=== PATIENT | female | born 1945 | race Hispanic/Latino ===

== ENCOUNTER 2018-02-01 14:30 | Emergency (ER) | payer MEDICARE, BC ==
[2018-02-01 14:32] VITALS: BMI 251865.1
[2018-02-01] MEDS ORDERED: Sodium Chloride 0.9% 1,000 ML IV SCH (14:45)
--- NOTE | 2018-02-01 14:49 | ED PDOC ---
Arrival/HPI - General Time Seen by Provider: 02/01/18 14:33 Historian: Patient - History of Present Illness Narrative History of Present Illness (Text): 02/01/18 14:46 72 year old female, whose past medical history includes hypertension, diabetes, hyperlipidemia, and end stage renal disease on dialysis, who present to the emergency department complaining of left arm numbness/weakness since 12:30. Patient denies any fever, chills, chest pain, shortness of breath, nausea, vomiting, diarrhea, back pain, neck pain, headache, dizziness, or any other complaints. Time/Duration: 1-3 hours Symptom Onset: Sudden Symptom Course: Unchanged Activities at Onset: Light Context: Home Past Medical History - Provider Review Nursing Documentation Reviewed: Yes - Infectious Disease Hx of Infectious Diseases: None - Cardiac Hx Pacemaker: No - Neurological Hx Paralysis: No - HEENT Hx HEENT Disorder: Yes (eyeglasses) Hx Glaucoma: Yes - Renal Hx Renal Failure: Yes - Endocrine/Metabolic Hx Diabetes Mellitus Type 2: Yes - Hematological/Oncological Hx Blood Transfusions: No Hx Blood Transfusion Reaction: No - Integumentary Hx Dermatological Disorder: No - Musculoskeletal/Rheumatological Hx Musculoskeletal Disorders: Yes - Gastrointestinal Hx Gastroesophageal Reflux: Yes Hx Gastrointestinal Ulcer: Yes - Genitourinary/Gynecological Hx Genitourinary Disorders: Yes (voids "very little") - Psychiatric Hx Emotional Abuse: No Hx Physical Abuse: No Hx Substance Use: No - Surgical History Hx Cardiac Catheterization: Yes Hx Coronary Stent: Yes (14 yrs ago) Other/Comment: CARDIAC STENT, 14 yra ago, r cw permacath for hd removed 04/14/2016 , left arm av shunt 09/29/2018, baloon sx february 25, 2016 ro removed blockage of left arm shunt, pt had had an us of left arm february 2016 due to a problem with shunt, stent left arm march 2016 - Anesthesia Hx Anesthesia Reactions: No Hx Malignant Hyperthermia: No - Suicidal Assessment Feels Threatened In Home Enviroment: No Family/Social History - Physician Review Nursing Documentation Reviewed: Yes Family/Social History: Unknown Family HX Smoking Status: Former Smoker Hx Alcohol Use: (quit 20 yrs ago) Hx Substance Use: No Hx Substance Use Treatment: No Allergies/Home Meds Allergies/Adverse Reactions: Allergies No Known Allergies Allergy (Verified 06/06/16 07:16) Home Medications: Home Meds Medication Instructions Recorded Confirmed Latanoprost 0.005% Opht [Xalatan 1 drp OU HS 04/09/15 10/11/16 Opht] Folic Acid 1 mg PO DAILY 07/05/15 10/11/16 amLODIPine [Norvasc] 10 mg PO DAILY 07/05/15 10/11/16 Aspirin [Adult Low Dose Aspirin EC] 81 mg PO QAM 09/27/15 10/11/16 Calcium Acetate [Phoslo] 667 mg PO WM 09/27/15 10/11/16 Ferrous Sulfate [Iron Supplement] 325 mg PO DAILY 09/27/15 10/11/16 Lansoprazole [Prevacid 24Hr] 15 mg PO QAM 09/27/15 10/11/16 Metoprolol Tartrate [Lopressor] 50 mg PO BID 09/27/15 10/11/16 [place]-3S/Dha/Epa/Fish Oil [Fish 1,200 mg PO DAILY 09/27/15 10/11/16 Oil 1,200 mg Softgel] Multivitamin [One Daily] 1 tab PO DAILY 06/06/16 10/11/16 Enalapril Maleate [Vasotec] 10 mg PO DAILY 10/03/16 10/11/16 Multivitamin with Iron [Tab-A-Ferny 1 tab PO DAILY 10/03/16 10/11/16 with Iron] Tramadol HCl/Acetaminophen 1 tab PO PRN PRN 10/03/16 10/11/16 [Acetaminophen-Tramadol HCl 325 mg-37.5 mg] Review of Systems - Physician Review All systems were reviewed & negative as marked: Yes - Review of Systems Constitutional: Normal Eyes: Normal ENT: Normal Respiratory: Normal. absent: SOB, Cough Cardiovascular: Normal. absent: Chest Pain Gastrointestinal: Normal. absent: Abdominal Pain Genitourinary Female: Normal. absent: Dysuria, Frequency Musculoskeletal: Other (numbness/weakness to left arm). absent: Back Pain Skin: Normal. absent: Other Neurological: Normal. absent: Headache, Dizziness Endocrine: Normal Hemo/Lymphatic: Normal Psychiatric: Normal Physical Exam Vital Signs Reviewed: Yes Vital Signs Temp Pulse Resp BP Pulse Ox 02/01/18 17:26 81 18 127/65 97 02/01/18 14:32 98.4 F 79 18 125/64 98 Temperature: Afebrile Blood Pressure: Normal Pulse: Regular Respiratory Rate: Normal Appearance: Positive for: Well-Appearing, Non-Toxic, Comfortable Pain Distress: None Mental Status: Positive for: Alert and Oriented X 3 Finger Stick Blood Glucose: 145 - Systems Exam Head: Present: Atraumatic, Normocephalic Pupils: Present: PERRL Extroacular Muscles: Present: EOMI Conjunctiva: Present: Normal Mouth: Present: Moist Mucous Membranes Neck: Present: Normal Range of Motion Respiratory/Chest: Present: Clear to Auscultation, Good Air Exchange. No: Respiratory Distress, Accessory Muscle Use Cardiovascular: Present: Regular Rate and Rhythm, Normal S1, S2. No: Murmurs Abdomen: No: Tenderness, Distention, Peritoneal Signs Back: Present: Normal Inspection Upper Extremity: Present: Normal Inspection. No: Cyanosis, Edema Lower Extremity: Present: Normal Inspection. No: Edema Skin: Present: Warm, Dry, Normal Color. No: Rashes Psychiatric: Present: Alert, Oriented x 3, Normal Insight, Anxious Medical Decision Making ED Course and Treatment: 02/01/18 14:50 Impression: 72 year old female presents to the emergency department complaining of sudden onset of numbness/weakness in the left arm since 12:30. ro stroke vs other metabolic etiology. Plan: -- Labs -- CT Head -- EKG -- Troponin -- CXR -- Sodium Chloride -- UA -- Reassess and disposition Progress Notes: EKG reviewed, shows NSR at 86 bpm. Non-specific ST/T wave changes. 02/01/18 15:[address] barajas, not tpa candidate low nih resolving symptoms. does not need cta given nih 2 . symptoms imprioving in er. pt took asa and plavix today. 02/01/18 16:09 Leaving Against Medical Advice (AMA): The patient is choosing to leave against medical advice. I have personally explained to the patient that choosing to do so may result in permanent bodily harm or . I have discussed at great length that without further evaluation and monitoring there may be unforeseen circumstances and/or deterioration causing permanent bodily harm or as a result of their choice. The patient is alert, oriented, and shows the mental capacity to make clear decisions regarding the patients health care at this time. The patient continues to wish to leave against medical advice. In light of the patients decision to leave against medical advice, follow-up has been arranged and the patient is aware of the importance to following up as instructed. The patient has been advised that they should return to the emergency room immediately if they change their mind at any time, or if their condition begins to change or worsen in any way. 02/01/18 18:17 symptoms resolved in er. advised risk of stroke. pt refuses admission/transfer. - Lab Interpretations Lab Results: 02/01/18 14:45 02/01/18 14:45 Lab Results 02/01/18 15:00: Blood Type A POSITIVE, Antibody Screen Negative, BBK History Checked Patient has bt 02/01/18 14:45: Sodium 138, Potassium 4.6, Chloride 95 L, Carbon Dioxide 22, Anion Gap 26 H, BUN 49 H, Creatinine 8.3 H*, Est GFR ( Amer) 6, Est GFR ( Non-Af Amer) 5, Random Glucose 143 H, Calcium 9.0, Total Bilirubin 0.4, AST 22, ALT 14, Alkaline Phosphatase 36 L, Troponin I < 0.01 D, Total Protein 8.0, Albumin 4.8, Globulin 3.2, Albumin/Globulin Ratio 1.5, Triglycerides 310 H, Cholesterol 156, LDL Cholesterol Direct 56, HDL Cholesterol 39 02/01/18 14:45: PT 12.4, INR 1.09 H, APTT 26.1 02/01/18 14:45: WBC 9.8, RBC 3.26 L, Hgb 9.9 L, Hct 30.2 L, MCV 92.6, MCH 30.4, MCHC 32.8, RDW 13.5, Plt Count 208, MPV 11.2 H, Gran % 59.3, Lymph % (Auto) 31.4 , [place] % (Auto) 6.0, Eos % (Auto) 2.9, Baso % (Auto) 0.4, Gran # 5.79, Lymph # ( Auto) 3.1, [place] # (Auto) 0.6, Eos # (Auto) 0.3, Baso # (Auto) 0.04 - RAD Interpretation Radiology Orders: 02/01/18 14:43 HEAD W/O (CODE STROKE) [CT] Stat CHEST PORTABLE [RAD] Stat - Medication Orders Current Medication Orders: Discontinued Medications Clopidogrel Bisulfate (Plavix) 300 mg PO STAT STA Stop: 02/01/18 15:22 Last Admin: 02/01/18 17:25 Dose: Not Given Non-Admin Reason: Patient Refused Sodium Chloride (Sodium Chloride 0.9%) 1,000 mls @ 100 mls/hr IV .Q10H GINA Last Admin: 02/01/18 16:00 Dose: Not Given Non-Admin Reason: Patient Refused eMAR Start Stop Document 02/01/18 16:00 EQ (Rec: 02/01/18 17:25 EQ [id number]) Intravenous Solution Start Date 02/01/18 Start Time 16:00 NIHSS Scale ([place]) Time Performed: 18:17 - How Severe is the Stoke Baseline Level of Consciousness: 0=Alert LOC to Questions: 0=Both comments correct LOC to commands: 0=Obeys both correctly Best Gaze: 0=Normal Visual: 0=No visual loss Facial: 0=Normal Motor Arm - Left: 1=Drift noted before 10 sec Motor Arm - Right: 0=No drift Motor Leg - Left: 0=No drift Motor Leg - Right: 0=No drift Limb Ataxia: 0=Absent Sensory: 1=Mild to moderate loss Best Language: 0=No aphasia Dysarthia: 0=Normal articulation Extinction & Inattention (Neglect): 0=Normal, no object Score: 2 Risk Level: Minor Stroke Risk rTPA Inclusion/Exclusion - Refusal of Treatment Patient Refused Treatment: No - Inclusion Criteria for Altepase Patient is 18 years or Older: Yes The Clinical Diagnosis of Ischemic Stroke That is Causing a Potentially Disabling Neurological Deficit: No Time of Onset is Well Established to be Less Than 270 Minute Before Treatment Would Begin: Yes Risk/Benefit Discussed With Patient/Family Member Present: No - Scribe Statement The provider has reviewed the documentation as recorded by the Scribe Nadja Singh All medical record entries made by the Scribe were at my direction and personally dictated by me. I have reviewed the chart and agree that the record accurately reflects my personal performance of the history, physical exam, medical decision making, and the department course for this patient. I have also personally directed, reviewed, and agree with the discharge instructions and disposition. Disposition/Present on Arrival - Present on Arrival Any Indicators Present on Arrival: No History of DVT/PE: No History of Uncontrolled Diabetes: No Urinary Catheter: No History Surgical Site Infection Following: None - Disposition Have Diagnosis and Disposition been Completed?: Yes Diagnosis: Left against medical advice, Arm weakness Disposition: AGAINST MEDICAL ADVICE Disposition Time: 05:00 Condition: UNKNOWN Discharge Instructions (ExitCare): Transient Ischemic Attack, Stroke, Generalized Weakness, Leaving Against Medical Advice Additional Instructions: please follow up with your doctor/specialist. return to er with worsening symptoms or concerns. Referrals: Maribel Tinoco MD [Primary Care Provider] - Follow up with primary Soto Barajas MD [Staff Provider] - Follow up with primary Forms: [employer] ([place])
--- NOTE | 2018-02-01 15:02 | CT ---
PROCEDURE: CT HEAD WITHOUT CONTRAST. HISTORY: Code Stroke COMPARISON: None available. TECHNIQUE: Axial computed tomography images were obtained through the head/brain without intravenous contrast. Radiation dose: Total exam DLP = 855.15 mGy-cm. This CT exam was performed using one or more of the following dose reduction techniques: Automated exposure control, adjustment of the mA and/or kV according to patient size, and/or use of iterative reconstruction technique. FINDINGS: HEMORRHAGE: No acute parenchymal, subarachnoid or extra-axial hemorrhage. BRAIN: Mild chronic periventricular white matter ischemic changes seen extending peripherally into the deep and subcortical white matter both cerebral hemispheres. Note that the possibility of a small hyperacute infarct cannot be excluded on this exam. Mild generalized volume loss. Mild calcifications both carotid siphons. VENTRICLES: No obstructive hydrocephalus. CALVARIUM: Calvarium intact PARANASAL SINUSES: Unremarkable as visualized. No significant inflammatory changes. MASTOID AIR CELLS: Partial opacification several right-sided inferior mastoid air cells the OTHER FINDINGS: Orbits and contents unremarkable IMPRESSION: No acute intracranial hemorrhage. Mild chronic white matter ischemic changes. Note that the possibility of a small hyperacute infarct cannot be completely excluded. Mild generalized volume loss. Findings discussed with doctor Burciaga at approximately 2:57 p.m. with written down and read back verification. Partial opacification several right-sided inferior mastoid air cells
--- NOTE | 2018-02-01 15:04 | RAD ---
HISTORY: Code Stroke COMPARISON: Comparison chest 06/08/2016 FINDINGS: LUNGS: Poor inspiration with low lung volumes, crowded bronchovascular markings and bibasilar atelectasis. There also appears to be increased increased and coarsened markings which may in part be due to low lung volumes however possibility of mild interstitial infiltrates or possibly sequela of reactive/inflammatory airway disease not excluded Clinic correlation recommended. PLEURA: Left CP angle poorly delineated which may be also due to poor inspiration as well as large body habitus however the possibility of a small effusion or chronic pleural thickening not excluded. No pneumothorax apparent. CARDIOVASCULAR: Heart appears enlarged. OSSEOUS STRUCTURES: No significant abnormalities. VISUALIZED UPPER ABDOMEN: Normal. OTHER FINDINGS: None. IMPRESSION: Poor inspiration with low lung volumes, crowded bronchovascular markings and bibasilar atelectasis. There also appears to be increased increased and coarsened markings which may in part be due to low lung volumes however possibility of mild interstitial infiltrates or possibly sequela of reactive/inflammatory airway disease not excluded Clinic correlation recommended.
[2018-02-01 15:08] LABS: BASO # 0.04 K/mm3 (0.0-2.0); BASO % 0.4 % (0.0-3.0); EOS # 0.3 (0.0-0.7); EOS % 2.9 % (1.5-5.0); GRAN # 5.79 (1.4-6.5); GRAN % 59.3 % (50.0-68.0); HEMOGLOBIN 9.9 g/dL (12.0-16.0); LYMPH # 3.1 (1.2-3.4); LYMPH % 31.4 % (22.0-35.0); MEAN CELL VOLUME 92.6 fl (80.0-105.0); MEAN CORPUSCULAR HEMOGLOBIN 30.4 pg (25.0-35.0); MEAN CORPUSCULAR HGB CONC 32.8 g/dl (31.0-37.0); MEAN PLATELET VOLUME 11.2 fl (7.0-11.0); MONO # 0.6 (0.1-0.6); RBC 3.26 10^6/uL (3.5-6.1); RED CELL DISTRIBUTION WIDTH 13.5 % (11.5-14.5); WHITE BLOOD COUNT 9.8 10^3/ul (4.5-11.0)
[2018-02-01 15:19] LABS: INR 1.09 (0.93-1.08); PARTIAL THROMBOPLASTIN TIME 26.1 Seconds (25.1-36.5); PROTHROMBIN TIME 12.4 SECONDS (9.4-12.5)
[2018-02-01 15:59] LABS: ALBUMIN 4.8 g/dL (3.0-4.8); BLOOD UREA NITROGEN 49 mg/dL (7-21); GFR AFRICAN-AMERICAN 6; GFR NON-AFRICAN AMERICAN 5
[2018-02-01 16:00] LABS: ALB/GLOB RATIO 1.5 (1.1-1.8); ALT/SGPT 14 U/L (7-56); AST/SGOT 22 U/L (14-36); HDL CHOLESTEROL 39 mg/dL (29-60); LDL CHOLESTEROL 56 mg/dL (0-129); TROPONIN I < 0.01 ng/mL
[2018-02-01 17:25] VITALS: RESP 18; TEMP 98.4
[2018-02-01 17:32] VITALS: BP 127/65; PULSE 81; O2SAT 97
--- NOTE | 2018-02-01 17:57 | CP.PCM.CON ---
History of Present Illness - History of Present Illness History of Present Illness: Neurology Consultation Note: Mrs. Ardon is a 72-year-old woman with a past medical history of HTN, DM, HLD, ESRD on HD, who presented to the ED after she developed left side numbness with slight weakness that started at around 12:30 PM. She was evaluated in the ED and a code stroke was called. Her NIHSS was a 2. CT scan of the head did not show any acute findings. Her symptoms were too mild to warrant tPA, therefor she was not a good candidate for IV tPA. Past Patient History - Infectious Disease Hx of Infectious Diseases: None - Past Social History Smoking Status: Former Smoker - CARDIAC Hx Pacemaker: No - NEUROLOGICAL Hx Paralysis: No - HEENT Hx HEENT Problems: Yes (eyeglasses) Hx Glaucoma: Yes - RENAL Hx Renal Failure: Yes - ENDOCRINE/METABOLIC Hx Diabetes Mellitus Type 2: Yes - HEMATOLOGICAL/ONCOLOGICAL Hx Blood Transfusions: No Hx Blood Transfusion Reaction: No - INTEGUMENTARY Hx Dermatological Problems: No - MUSCULOSKELETAL/RHEUMATOLOGICAL Hx Musculoskeletal Disorders: Yes - GASTROINTESTINAL Hx Gastroesophageal Reflux: Yes - GENITOURINARY/GYNECOLOGICAL Hx Genitourinary Disorders: Yes (voids "very little") - PSYCHIATRIC Hx Emotional Abuse: No Hx Physical Abuse: No Hx Substance Use: No - SURGICAL HISTORY Hx Cardiac Catheterization: Yes Hx Coronary Stent: Yes (14 yrs ago) Other/Comment: CARDIAC STENT, 14 yra ago, r cw permacath for hd removed 04/14/2016 , left arm av shunt 09/29/2018, baloon sx february 25, 2016 ro removed blockage of left arm shunt, pt had had an us of left arm february 2016 due to a problem with shunt, stent left arm march 2016 - ANESTHESIA Hx Anesthesia Reactions: No Hx Malignant Hyperthermia: No Meds Allergies/Adverse Reactions: Allergies Allergy/AdvReac Type Severity Reaction Status Date / Time No Known Allergies Allergy Verified 06/06/16 07:16 Results - Vital Signs Recent Vital Signs: Last Vital Signs Temp 98.4 F 02/01/18 14:32 Pulse 81 02/01/18 17:26 Resp 18 02/01/18 17:26 BP 127/65 02/01/18 17:26 Pulse Ox 97 02/01/18 17:26 - Labs Result Diagrams: 02/01/18 14:45 02/01/18 14:45 Labs: Laboratory Results - last 24 hr 02/01/18 02/01/18 02/01/18 14:45 14:45 14:45 WBC 9.8 RBC 3.26 L Hgb 9.9 L Hct 30.2 L MCV 92.6 MCH 30.4 MCHC 32.8 RDW 13.5 Plt Count 208 MPV 11.2 H Gran % 59.3 Lymph % (Auto) 31.4 [place] % (Auto) 6.0 Eos % (Auto) 2.9 Baso % (Auto) 0.4 Gran # 5.79 Lymph # (Auto) 3.1 [place] # (Auto) 0.6 Eos # (Auto) 0.3 Baso # (Auto) 0.04 PT 12.4 INR 1.09 H APTT 26.1 Sodium 138 Potassium 4.6 Chloride 95 L Carbon Dioxide 22 Anion Gap 26 H BUN 49 H Creatinine 8.3 H* Est GFR ( Amer) 6 Est GFR (Non-Af Amer) 5 Random Glucose 143 H Calcium 9.0 Total Bilirubin 0.4 AST 22 ALT 14 Alkaline Phosphatase 36 L Troponin I < 0.01 D Total Protein 8.0 Albumin 4.8 Globulin 3.2 Albumin/Globulin Ratio 1.5 Triglycerides 310 H Cholesterol 156 LDL Cholesterol Direct 56 HDL Cholesterol 39 Blood Type Antibody Screen BBK History Checked 02/01/18 15:00 WBC RBC Hgb Hct MCV MCH MCHC RDW Plt Count MPV Gran % Lymph % (Auto) [place] % (Auto) Eos % (Auto) Baso % (Auto) Gran # Lymph # (Auto) Stanley # (Auto) Eos # (Auto) Baso # (Auto) PT INR APTT Sodium Potassium Chloride Carbon Dioxide Anion Gap BUN Creatinine Est GFR ( Amer) Est GFR (Non-Af Amer) Random Glucose Calcium Total Bilirubin AST ALT Alkaline Phosphatase Troponin I Total Protein Albumin Globulin Albumin/Globulin Ratio Triglycerides Cholesterol LDL Cholesterol Direct HDL Cholesterol Blood Type A POSITIVE Antibody Screen Negative BBK History Checked Patient has bt
--- NOTE | 2018-02-01 18:53 | CARD ---
APPROVED REPORT EKG Measurement Heart [id number] <Conclusion> Normal sinus rhythm Nonspecific ST and T wave abnormality Prolonged QT Abnormal ECG
== END 2018-02-01 17:26 | disposition left against medical advice (07) ==
LOC: ED 14:30
DX: M62.81 Muscle weakness (generalized) (principal); I12.0 Hypertensive chronic kidney disease with stage 5 chronic kidney disease or end stage renal disease; E11.22 Type 2 diabetes mellitus with diabetic chronic kidney disease; N18.6 End stage renal disease; Z99.2 Dependence on renal dialysis; E78.5 Hyperlipidemia, unspecified; Z87.891 Personal history of nicotine dependence

== ENCOUNTER → 2018-07-22 | Day surgery (SDC) | payer MEDICARE, BC ==
[2018-07-17 11:12] VITALS: BMI 28.1
[~2018-07-22] MED LIST: Iodixanol 320 MG/ML 200 ML BOTTLE IV ONE; Lidocaine 2% Inj (20ml) ONE; Midazolam 2 MG/2 ML VIAL ONE; Nitroglycerin 50mg in D5W 50 MG/250 ML BOTTLE IV ONE
[2018-07-22 11:55] LABS: BASO # 0.07 K/mm3 (0.0-2.0); BASO % 0.8 % (0.0-3.0); EOS # 0.4 (0.0-0.7); GRAN # 5.54 (1.4-6.5); GRAN % 63.3 % (50.0-68.0); HEMOGLOBIN 10.8 g/dL (12.0-16.0); LYMPH # 2.2 (1.2-3.4); LYMPH % 25.6 % (22.0-35.0); MEAN CELL VOLUME 99.4 fl (80.0-105.0); MEAN CORPUSCULAR HEMOGLOBIN 31.2 pg (25.0-35.0); MEAN CORPUSCULAR HGB CONC 31.4 g/dl (31.0-37.0); MEAN PLATELET VOLUME 11.4 fl (7.0-11.0); MONO # 0.6 (0.1-0.6); MONO % 6.3 % (1.0-6.0); RBC 3.46 10^6/uL (3.5-6.1); RED CELL DISTRIBUTION WIDTH 19.8 % (11.5-14.5); WHITE BLOOD COUNT 8.8 10^3/uL (4.5-11.0)
[2018-07-22 12:00] LABS: PARTIAL THROMBOPLASTIN TIME 24.8 Seconds (25.1-36.5); PROTHROMBIN TIME 11.5 SECONDS (9.4-12.5)
[2018-07-22 12:27] LABS: CALCIUM 8.8 mg/dL (8.4-10.5)
[2018-07-22 16:09] VITALS: RESP 16; TEMP 97.8
[2018-07-22 16:27] VITALS: BP 134/63; PULSE 67; O2SAT 100
--- NOTE | 2018-07-22 20:21 | VASCULAR ---
PROCEDURE: 1. Left upper extremity AV fistula angiogram 2. INFORMATION ASSURANCE SPECIALIST arterial anastomosis HISTORY: End-stage renal disease. Malfunctioning AV access PHYSICIAN(S): Vinh Snyder MD. TECHNIQUE: The relative risks and indications of the procedure were explained to the patient and consent obtained. Preliminary sonography of the anastomosis was performed. This revealed a web-like small anastomosis at the wrist. The patient was placed supine on the angiography table and the left arm prepped and draped in usual sterile fashion. Conscious sedation and monitoring provided throughout the procedure by a nurse. Under ultrasound guidance, the left upper extremity AV fistula was punctured antegrade direction with a micropuncture set. A 5 [place] catheter was placed. Overlapping left upper extremity AV fistula angiograms were performed. Central venous imaging was obtained. A blood pressure cuff was applied to the forearm and reflux of the anastomosis performed. The initial puncture was removed and hemostasis obtained with a purse string suture. A 2nd puncture was performed in a retrograde direction towards the anastomosis under ultrasound guidance. A 5 [place] sheath was placed. The anastomosis was crossed with an angled glidewire and 5 [place] catheter. Exchange is made for a 0.018 support wire. The anastomosis was dilated with 5 and 6 mm balloons. An improved appearance was obtained though there is a residual stenosis. The sheath was removed hemostasis obtained with a purse string suture. The patient tolerated the procedure well. FINDINGS: There is a web-like stenosis at the arterial anastomosis. The left radial-cephalic fistula is patent. The venous outflow in the left upper extremity is somewhat underdeveloped. The left cephalic vein is patent. At the elbow, there is drainage via the left cephalic and left basilic veins. The left axillary vein, left subclavian vein, left innominate vein, and SVC are widely patent. The visualized segment of the distal left radial artery is unremarkable. Incidental note is made of vascular coils in the left forearm, presumably within a vein IMPRESSION: 1. Angioplasty of the arterial anastomosis with 5 and 6 mm balloons. 2. Underdeveloped but patent outflow veins via the left cephalic and basilic veins.
== END | disposition home or self-care (01) ==
LOC: SDSVAS 11:03
PROVIDERS: ATTEND Radiology Vascular & Interventional Radiology
DX: T82.318A Breakdown (mechanical) of other vascular grafts, initial encounter (principal); N18.6 End stage renal disease; I12.0 Hypertensive chronic kidney disease with stage 5 chronic kidney disease or end stage renal disease; E11.22 Type 2 diabetes mellitus with diabetic chronic kidney disease; I25.10 Atherosclerotic heart disease of native coronary artery without angina pectoris; I25.2 Old myocardial infarction; Z87.891 Personal history of nicotine dependence
CPT/HCPCS: 36415; 36901; 80048; 85025; 85610; 85730; 99152; 99153; C1725 ×2; C1769 ×2; C1894; J1644; J2250; J2405; J3010; Q9966